=== PATIENT | female | born 1975 ===

== ENCOUNTER 2017-12-02 10:07 | Outpatient (CLI) | payer OTHER ==
[~2017-12-02] VITALS: Ht 162.6 cm; Wt 63.5 kg
== END 2017-12-02 10:35 | disposition home or self-care (01) ==
LOC: OFIC 805 10:07
DX: K21.9 Gastro-esophageal reflux disease without esophagitis (principal); H61.21 Impacted cerumen, right ear; R13.19 Other dysphagia

== ENCOUNTER 2018-02-06 10:04 | Outpatient (CLI) | payer OTHER | END 2018-02-06 10:17 | disposition home or self-care (01) | LOC: SONOGRAMA 10:04 | DX: N84.0 Polyp of corpus uteri (principal); R22.1 Localized swelling, mass and lump, neck ==

== ENCOUNTER 2018-03-11 09:00 | Outpatient (CLI) | payer OTHER ==
[~2018-03-11] VITALS: Ht 152.4 cm; Wt 63.5 kg
== END 2018-03-11 18:02 | disposition home or self-care (01) ==
LOC: OFIC 805 09:00
DX: H61.21 Impacted cerumen, right ear (principal); R22.1 Localized swelling, mass and lump, neck